=== PATIENT | female | born 1990 ===

== ENCOUNTER → 2023-04-09 | Outpatient (CLI) | payer BC | END | disposition home or self-care (01) | LOC: LAB 13:45 → LAB SHORT 13:45 | DX: O20.0 Threatened abortion (principal) | CPT/HCPCS: 84702 ==

== ENCOUNTER → 2023-05-23 | Outpatient (CLI) | payer BC | LOC: LAB SHORT 17:12 → LAB 17:12 | DX: O03.9 Complete or unspecified spontaneous abortion without complication (principal) | CPT/HCPCS: 84702 ==